=== PATIENT | female | born 1950 | race African-American/Black ===

== ENCOUNTER 2016-11-03 07:08 | Emergency (ER) | payer MEDICARE, OTHER, BC ==
[2016-11-03] MEDS ORDERED: PREDNISONE 20 MG TABLET PO ONE (10:18)
--- NOTE | 2016-11-03 10:24 | ER Document Report ---
ED General - General Chief Complaint: Leg Pain Stated Complaint: LEG PAIN TRAVEL OUTSIDE OF THE [place] IN LAST 30 DAYS: No - HPI Patient complains to provider of: right buttocks right leg pain Notes: Patient states right buttocks right leg pain ongoing for the past few months multiple exacerbations states today's exacerbation worse than before. Patient denies any trauma denies fevers chills nausea vomiting diarrhea. Patient states he has not been evaluated for this in the past. A she does state a history of arthritis. Denies any numbness tingling denies any saddle anesthesias denies any bowel or bladder incontinence - Related Data Allergies/Adverse Reactions: Sulfa (Sulfonamide Antibiotics) Allergy (Verified 07/13/16 17:23) STRAWBERRY Allergy (Uncoded 07/13/16 17:23) Past Medical History - Social History Smoking Status: Never Smoker Frequency of alcohol use: None Drug Abuse: None Family History: Reviewed & Not Pertinent Patient has suicidal ideation: No Patient has homicidal ideation: No - Past Medical History Cardiac Medical History: Reports: Hx Hypercholesterolemia, Hx Hypertension, Hx Heart Murmur Renal/ Medical History: Denies: Hx Peritoneal Dialysis GI Medical History: Reports: Hx Hiatal Hernia Musculoskeltal Medical History: Reports Hx Arthritis Past Surgical History: Reports: Hx Appendectomy, Hx Breast Surgery - LUMPECTOMY , Hx Section - X2, Hx Hysterectomy, Hx Tubal Ligation - Immunizations Hx Diphtheria, Pertussis, Tetanus Vaccination: Yes Review of Systems - Review of Systems Constitutional: No symptoms reported EENT: No symptoms reported Cardiovascular: No symptoms reported Respiratory: No symptoms reported Gastrointestinal: No symptoms reported Genitourinary: No symptoms reported Female Genitourinary: No symptoms reported Musculoskeletal: Back pain Skin: No symptoms reported Hematologic/Lymphatic: No symptoms reported Neurological/Psychological: No symptoms reported -: Yes All other systems reviewed and negative Physical Exam - Vital signs Vitals: Temp Pulse Resp BP Pulse Ox 97.5 F 48 L 16 163/66 H 97 11/03/16 07:15 11/03/16 07:15 11/03/16 07:15 11/03/16 07:15 11/03/16 07:15 Interpretation: Normal - General General appearance: Appears well, Alert - HEENT Head: Normocephalic, Atraumatic Eyes: Normal Pupils: PERRL - Respiratory Respiratory status: No respiratory distress Chest status: Nontender Breath sounds: Normal Chest palpation: Normal - Cardiovascular Rhythm: Regular Heart sounds: Normal auscultation Murmur: No - Abdominal Inspection: Normal Distension: No distension Bowel sounds: Normal Tenderness: Nontender Organomegaly: No organomegaly - Back Back: Normal, Other - Patient is tender to palpation of the right gluteus xena that does reproduce the patient's symptoms down the back of her leg. - Extremities General upper extremity: Normal inspection, Nontender, Normal color, Normal ROM , Normal temperature General lower extremity: Normal inspection, Nontender, Normal color, Normal ROM , Normal temperature, Normal weight bearing. No: Conner's sign - Neurological Neuro grossly intact: Yes Cognition: Normal Orientation: AAOx4 [place] Coma Scale Eye Opening: Spontaneous [place] Coma Scale Verbal: Oriented [place] Coma Scale Motor: Obeys Commands [place] Coma Scale Total: 15 Speech: Normal Motor strength normal: LUE, RUE, LLE, RLE Sensory: Normal - Psychological Associated symptoms: Normal affect, Normal mood - Skin Skin Temperature: Warm Skin Moisture: Dry Skin Color: Normal Course - Re-evaluation Re-evalutation: 11/03/16 14:53 Patient will be given a burst of steroids to help out with her treatment anti- inflammatories and pain medication. Patient more likely has sciatica. No other significant pathology seen on physical examination patient will be discharged home - Vital Signs Vital signs: Temp Pulse Resp BP Pulse Ox 97.5 F 50 L 16 183/88 H 100 11/03/16 07:15 11/03/16 10:53 11/03/16 07:15 11/03/16 10:53 11/03/16 10:53 Discharge - Discharge Clinical Impression: Sciatica Qualifiers: Laterality: right Qualified Code(s): M54.31 - Sciatica, right side Condition: Good Disposition: HOME, SELF-CARE Instructions: Sciatica ([facility]), Family Physicians / Practices Additional Instructions: Take medication as prescribed. Return to the ER symptoms worsen. Prescriptions: Ibuprofen [Motrin 600 Mg Tablet] 600 mg PO TID #15 tablet Prednisone [Deltasone 20 mg Tablet] 2 tab PO DAILY 5 Days Tramadol HCl [Ultram 50 mg Tablet] 50 mg PO ASDIR PRN #20 tablet PRN Reason: Forms: Return to Work
[2016-11-03 11:13] VITALS: BP 183/88
== END 2016-11-03 10:53 | disposition home or self-care (01) ==
LOC: ER 07:08
DX: M54.31 Sciatica, right side (principal); M79.604 Pain in right leg; E78.00 Pure hypercholesterolemia, unspecified; I10 Essential (primary) hypertension; Z90.710 Acquired absence of both cervix and uterus; Z88.2 Allergy status to sulfonamides
CPT/HCPCS: 99283; A9270; J7512